=== PATIENT | female | born 1985 | race Caucasian/White ===

== ENCOUNTER 2016-12-03 10:23 | Day surgery (SDC) | payer OTHER ==
[2016-11-27 11:10] VITALS: BMI 62.4
[~2016-12-03] VITALS: Ht 175.3 cm; Wt 189.0 kg
[2016-12-03] VITALS (12 sets, daily range): BP systolic 100–127; BP diastolic 57–91; PULSE 58–90; RESP 16–29; Ht 175.3 cm; Wt 189.0 kg
[~2016-12-03 10:23] MED LIST: ALBU18HF INHALATION; ATEN1TAB3 PO; BECL8.7A5 INH; CEFAZOLIN 2 GM/50 ML (PMX) 50 ML IVPB SCH; CLOB15OI15 TOP; DESO1TAB PO; ERGO500037 PO; GABA300C16 PO; MONT10TA24 PO; NYST15CR TOP; OMEP40CA6 PO; SOD CHLORIDE 0.9% 1,000 ML IV SCH; SPIR100T31 PO
[2016-12-03] MEDS ORDERED: BUPIVACAINE 0.25% (MPF) 10 ML 10 ML VIAL ONE (12:22)
[2016-12-03] MEDS ORDERED: GLYCOPYRROLATE 0.4 MG INJ ONE ×3 (12:37→12:43)
[2016-12-03] MEDS ORDERED: PROPOFOL 20 ML ONE (12:38)
[2016-12-03] MEDS ORDERED: ROCURONIUM 50 MG INJ ONE (12:38)
[2016-12-03] MEDS ORDERED: LIDOCAINE 2% (SDV) 5 ML INJ ONE (12:38)
[2016-12-03] MEDS ORDERED: NEOSTIGMINE 3 MG/3 ML SYRINGE ONE ×2 (12:38→12:43)
[2016-12-03] MEDS ORDERED: MEPERIDINE 100 MG INJ ONE (12:38)
[2016-12-03] MEDS ORDERED: SUCCINYLCHOLINE CHLORIDE 100 MG/5 ML SYG IV ONE (12:38)
[2016-12-03] MEDS ORDERED: METOCLOPRAMIDE 10 MG INJ ONE (12:43)
[2016-12-03] MEDS ORDERED: ONDANSETRON 4 MG INJ ONE (12:43)
[2016-12-03] MEDS ORDERED: CEFAZOLIN 1 GM INJ ONE ×2 (12:43→13:28)
[2016-12-03] MEDS: HYDROmorphONE (0.2 MG/ML) 10ML SYG IV PRN ×2 (13:57→14:16)
[2016-12-03] MEDS ORDERED: ONDANSETRON 4 MG INJ IV PRN (14:00)
[2016-12-03] MEDS ORDERED: HYDROmorphONE (0.2 MG/ML) 10ML SYG IV PRN (14:00)
[2016-12-03] MEDS ORDERED: MEPERIDINE 25 MG INJ IV PRN (14:00)
[2016-12-03] MEDS ORDERED: FENTAnyl 50 MCG/ML VIAL IV PRN ×2 (14:00)
[2016-12-03] MEDS ORDERED: DIPHENHYDRAMINE 50 MG INJ IV PRN (14:00)
[2016-12-03] MEDS ORDERED: LABETALOL HCL 20MG INJ IV PRN (14:00)
[2016-12-03] MEDS ORDERED: EPHEDrine SULFATE 50 MG/5 ML SYG IV PRN (14:00)
[2016-12-03] MEDS ORDERED: morphine (1 MG/ML) 10ML SYRINGE IV PRN ×2 (14:00)
[2016-12-03] MEDS ORDERED: MIDAZOLAM 1 MG/ML 2 ML INJ IV PRN (14:00)
[2016-12-03] MEDS ORDERED: hydrALAzine 20 MG INJ IV PRN (14:00)
[2016-12-03] MEDS ORDERED: METOCLOPRAMIDE 10 MG INJ IV PRN (14:00)
[2016-12-03] MEDS ORDERED: HYDROCODONE/APAP (5/325) TAB PO ONE (14:00)
--- NOTE | 2016-12-03 16:06 | OPR ---
DATE OF OPERATION: 12/03/2016 INDICATION: This is a 31-year-old female with symptomatic gallstones. She requests surgical excisi on of her gallbladder. Risks, alternatives, benefits were discussed with the patient. The patient expressed understanding, consents to the operation. PREOPERATIVE DIAGNOSIS: Symptomatic gallstones. POSTOPERATIVE DIAGNOSIS: Symptomatic gallstones. OPERATION: Laparoscopic cholecystectomy. SURGEON: Tammy Salas MD. SPECIMENS: Gallbladder. COMPLICATIONS: None. ANESTHESIA: General. PROCEDURE: The patient was taken to the OR and prepped and draped in usual sterile fashion. Surgic al timeout was performed. IV antibiotics were given. Infraumbilical transverse incision is made wi th a 15 blade. Dissection cautery was carried down to the fascia which was divided with curved Tian scissors. An 0 Vicryl U-stitch was placed into the fascia. Balloon Raymon trocar was introduced. Pneumoperitoneum established. Midepigastric 12 mm optical trocar right upper quadrant, upper flank 5 mm optical trocars were placed under direct visualization. Upon initial inspection, there were s ome adhesions to the gallbladder. The cystic duct was identified. The critical view was establishe d. The cystic duct was divided using a 35 mm [place] vascular load stapler. The cystic artery was identified and divided using clips and scissors. Gallbladder was taken off the gallbladder bed. Th ere was good hemostasis. Gallbladder was retrieved using EndoCatch bag. Ports were removed under d irect visualization. 0 Vicryl U-stitch was tied down. Skin was closed using skin freddy. Local a nesthesia was injected. Dry dressings were applied. Dictated By: TAMMY SALAS MD SB/NTS Conf#: [id number] DID#: [id number]
== END 2016-12-03 15:35 | disposition home or self-care (01) ==
LOC: SDS 10:23
PROVIDERS: ATTEND Surgery
DX: K80.10 Calculus of gallbladder with chronic cholecystitis without obstruction (principal); E66.01 Morbid (severe) obesity due to excess calories; Z68.44 Body mass index [BMI] 60.0-69.9, adult; J45.909 Unspecified asthma, uncomplicated
CPT/HCPCS: 47562; 88304; J0330; J0690; J1170; J2175; J2405; J2710; J2765; Z7512; Z7610